=== PATIENT | female | born 1960 | race Caucasian/White ===

== ENCOUNTER 2016-10-27 04:05 | Inpatient (IN) | payer OTHER ==
[~2016-10-27] VITALS: Ht 160 cm; Wt 72.6 kg
[2016-10-27 05:28] LABS: BASOPHIL % 0.2 % (0-2); PLATELET COUNT 193 x10^3mcL (130-400); RED CELL DISTRIBUTION WIDTH 12.8 % (11.5-14.5)
[2016-10-27 05:35] LABS: CALCIUM 8.2 mg/dL (8.5-10.1); CARBON DIOXIDE 22.7 mmol/L (21-32); CHLORIDE SERUM 105 mmol/L (98-107); GFR1 > 60 mL/min; GLUCOSE SERUM 322 mg/dL (74-106); POTASSIUM SERUM 3.9 mmol/L (3.5-5.1); SODIUM SERUM 142 mmol/L (136-145)
[2016-10-27 05:40] LABS: ALBUMIN 4.1 g/dL (3.4-5.0); ALKALINE PHOSPHATASE 79 U/L (46-116); ALT/SGPT 64 U/L (14-59); AMYLASE 74 U/L (25-115); AST/SGOT 57 U/L (15-37); BILIRUBIN TOTAL 0.34 mg/dL (0.20-1.00); LIPASE 96 IU/L (73-393); TOTAL PROTEIN, SERUM 7.5 g/dL (6.4-8.2)
[2016-10-27] MEDS ORDERED: SYNTHROID0.15 MG PO (05:52)
[2016-10-27] MEDS ORDERED: ASPIR 8181 MG PO (05:52)
[2016-10-27] MEDS ORDERED: CLONIDINE HCL0.1 MG PO (05:53)
[2016-10-27] MEDS ORDERED: ZOLOFT100 MG PO (05:53)
[2016-10-27] MEDS ORDERED: WEL75 PO (05:53)
[2016-10-27] MEDS ORDERED: RESTORIL30 MG PO (05:53)
[2016-10-27] MEDS ORDERED: SEROQUEL XR400 M1 PO (05:54)
[2016-10-27] MEDS ORDERED: AMITRIPTYLINE100 MG PO (05:54)
[2016-10-27] MEDS ORDERED: NATURAL IRON65 MG PO (05:55)
[2016-10-27 07:27] LABS: T3 TOTAL 0.61 ng/mL
[2016-10-27 07:37] LABS: MAGNESIUM 1.8 mg/dL (1.8-2.4)
[2016-10-27 07:59] LABS: CHOLESTEROL/HDL RATIO 2.8
[2016-10-27 08:07] LABS: FREE T4 0.78 ng/dL (0.76-1.46); FREE THYROXINE INDEX 2.2 ug/dL (1.4-4.5)
[2016-10-27 10:32] VITALS: BP 131/66
[2016-10-27 14:11] VITALS: BP 122/75
[2016-10-27 17:48] VITALS: BP 112/73
[2016-10-27 21:30] VITALS: BP 127/75
[2016-10-28 04:45] LABS: microscopic required? NO
[2016-10-28 04:46] VITALS: BP 96/60
[2016-10-28 04:52] LABS: UA SPECIFIC GRAVITY >=1.030 (1.005-1.035); urine erythrocyte NEGATIVE (NEGATIVE)
[2016-10-28 05:07] LABS: AMPHETAMINE QUAL UR NONE DETECTED (NEG <=1000)
[2016-10-28 09:04] LABS: BASOPHIL % 0.5 % (0-2); PLATELET COUNT 168 x10^3mcL (130-400); RED CELL DISTRIBUTION WIDTH 12.6 % (11.5-14.5)
[2016-10-28 09:43] VITALS: BP 93/61
[2016-10-28 12:15] LABS: CALCIUM 7.7 mg/dL (8.5-10.1); CARBON DIOXIDE 28.7 mmol/L (21-32); CHLORIDE SERUM 109 mmol/L (98-107); CREATININE SERUM 0.8 mg/dL (0.6-1.0); GFR1 > 60 mL/min; GLUCOSE SERUM 133 mg/dL (74-106); MAGNESIUM 2.2 mg/dL (1.8-2.4); PHOSPHOROUS 1.5 mg/dL (2.5-4.9); POTASSIUM SERUM 4.3 mmol/L (3.5-5.1); SODIUM SERUM 141 mmol/L (136-145)
[2016-10-28] MEDS ORDERED: PANTOPRAZOLE SO40 M1 PO (12:19)
[2016-10-28 14:43] VITALS: BP 93/61
[2016-10-28] MEDS ORDERED: METOCLOPRAMIDE H5 M1 PO (15:21)
[2016-10-28 17:15] VITALS: BP 120/70
== END 2016-10-28 17:59 | disposition home or self-care (01) | DRG 391 ==
LOC: ED 04:05 → MU 06:23 → DU 06:23 → MU 10-28 06:16
PROVIDERS: Emergency Medicine; Internal Medicine Gastroenterology; ADMIT Family Medicine
PROC: 0DB68ZX Excision of Stomach, Via Natural or Artificial Opening Endoscopic, Diagnostic (ICD-10-PCS; principal; 2016-10-28 08:00)
PROC: 0DB48ZX Excision of Esophagogastric Junction, Via Natural or Artificial Opening Endoscopic, Diagnostic (ICD-10-PCS; 2016-10-28 08:00)
DX: K29.70 Gastritis, unspecified, without bleeding (principal); N17.0 Acute kidney failure with tubular necrosis; D68.69 Other thrombophilia; K31.9 Disease of stomach and duodenum, unspecified; E11.65 Type 2 diabetes mellitus with hyperglycemia; E11.59 Type 2 diabetes mellitus with other circulatory complications; E78.2 Mixed hyperlipidemia; K21.9 Gastro-esophageal reflux disease without esophagitis; D75.1 Secondary polycythemia; F31.9 Bipolar disorder, unspecified; I27.2 Other secondary pulmonary hypertension; E03.9 Hypothyroidism, unspecified; E83.42 Hypomagnesemia; F11.10 Opioid abuse, uncomplicated; F12.10 Cannabis abuse, uncomplicated; Z86.73 Personal history of transient ischemic attack (TIA), and cerebral infarction without residual deficits; Z98.84 Bariatric surgery status; Z68.27 Body mass index [BMI] 27.0-27.9, adult
CPT/HCPCS: 43235; 80307; 83880; 84439; C9113; J1200; J1610; J2250; J2270; J2310; J2405; J2765; J3010; J3490; J7030; Q0092

== ENCOUNTER 2016-11-02 21:33 | Emergency (ER) | payer OTHER ==
[~2016-11-02 21:33] MED LIST: AMITRIPTYLINE100 MG PO; ASPIR 8181 MG PO; CLONIDINE HCL0.1 MG PO; METOCLOPRAMIDE H5 M1 PO; NATURAL IRON65 MG PO; PANTOPRAZOLE SO40 M1 PO; RESTORIL30 MG PO; SEROQUEL XR400 M1 PO; SYNTHROID0.15 MG PO; WEL75 PO; ZOLOFT100 MG PO
[2016-11-02 22:16] LABS: PLATELET COUNT 221 x10^3mcL (130-400); RED CELL DISTRIBUTION WIDTH 12.5 % (11.5-14.5)
[2016-11-02 22:23] LABS: CALCIUM 8.8 mg/dL (8.5-10.1); CARBON DIOXIDE 30.3 mmol/L (21-32); CHLORIDE SERUM 103 mmol/L (98-107); CREATININE SERUM 1.2 mg/dL (0.6-1.0); GFR1 50 mL/min; GLUCOSE SERUM 140 mg/dL (74-106); POTASSIUM SERUM 4.1 mmol/L (3.5-5.1); SODIUM SERUM 138 mmol/L (136-145)
[2016-11-02 22:29] LABS: ALBUMIN 3.6 g/dL (3.4-5.0); ALKALINE PHOSPHATASE 89 U/L (46-116); ALT/SGPT 52 U/L (14-59); AST/SGOT 28 U/L (15-37); BILIRUBIN TOTAL 0.3 mg/dL (0.20-1.00); TOTAL PROTEIN, SERUM 6.7 g/dL (6.4-8.2)
[2016-11-02 22:54] LABS: AMPHETAMINE QUAL UR NONE DETECTED (NEG <=1000)
[2016-11-02 23:31] VITALS: BP 125/87
== END 2016-11-02 23:31 | disposition home or self-care (01) ==
LOC: ED 21:33
PROVIDERS: Emergency Medicine
DX: Z00.8 Encounter for other general examination (principal); T45.0X1A Poisoning by antiallergic and antiemetic drugs, accidental (unintentional), initial encounter; T39.1X1A Poisoning by 4-Aminophenol derivatives, accidental (unintentional), initial encounter; I10 Essential (primary) hypertension; E03.9 Hypothyroidism, unspecified; E11.9 Type 2 diabetes mellitus without complications; F32.9 Major depressive disorder, single episode, unspecified; Z86.73 Personal history of transient ischemic attack (TIA), and cerebral infarction without residual deficits; Y92.9 Unspecified place or not applicable
CPT/HCPCS: 80307; G0480; Q0092

== ENCOUNTER 2016-12-30 18:40 | Emergency (ER) | payer OTHER ==
[2016-12-30 22:30] VITALS: BP 102/71
== END 2016-12-30 23:30 | disposition home or self-care (01) ==
LOC: ED 18:40
DX: G43.909 Migraine, unspecified, not intractable, without status migrainosus (principal); F99 Mental disorder, not otherwise specified; I10 Essential (primary) hypertension; E11.9 Type 2 diabetes mellitus without complications; Z79.82 Long term (current) use of aspirin; Z79.899 Other long term (current) drug therapy; Z79.891 Long term (current) use of opiate analgesic; Z86.73 Personal history of transient ischemic attack (TIA), and cerebral infarction without residual deficits
CPT/HCPCS: J1170; Q0162

== ENCOUNTER 2017-04-20 00:09 | Emergency (ER) | payer OTHER ==
[2017-04-20 02:17] VITALS: BP 111/73
== END 2017-04-20 02:17 | disposition home or self-care (01) ==
LOC: ED 00:09
DX: G43.909 Migraine, unspecified, not intractable, without status migrainosus (principal); I10 Essential (primary) hypertension; E11.9 Type 2 diabetes mellitus without complications; E03.9 Hypothyroidism, unspecified; Z90.710 Acquired absence of both cervix and uterus; Z90.49 Acquired absence of other specified parts of digestive tract
CPT/HCPCS: J0780; J1885

== ENCOUNTER 2018-02-19 13:41 | Emergency (ER) | payer MEDICARE, OTHER ==
[~2018-02-19] VITALS: Ht 162.6 cm; Wt 77.1 kg
[2018-02-19 14:00] VITALS: Ht 162.6 cm; Wt 77.1 kg
[2018-02-19 15:00] VITALS: BP 131/65
== END 2018-02-19 15:00 | disposition home or self-care (01) ==
LOC: ED 13:41
DX: G89.29 Other chronic pain (principal); R51 Headache; R53.1 Weakness; I10 Essential (primary) hypertension; E11.9 Type 2 diabetes mellitus without complications; E03.9 Hypothyroidism, unspecified; Z90.710 Acquired absence of both cervix and uterus; Z90.49 Acquired absence of other specified parts of digestive tract
CPT/HCPCS: J2270; Q0162

== ENCOUNTER 2018-07-13 20:21 | Emergency (ER) | payer OTHER ==
[~2018-07-13] VITALS: Ht 162.6 cm; Wt 75.3 kg
[2018-07-13 20:33] VITALS: Ht 162.6 cm; Wt 75.3 kg
[2018-07-13 22:30] VITALS: BP 105/85
== END 2018-07-13 22:30 | disposition home or self-care (01) ==
LOC: ED 20:21
DX: G43.909 Migraine, unspecified, not intractable, without status migrainosus (principal); I10 Essential (primary) hypertension; E11.9 Type 2 diabetes mellitus without complications; Z86.73 Personal history of transient ischemic attack (TIA), and cerebral infarction without residual deficits; Z90.49 Acquired absence of other specified parts of digestive tract; Z98.84 Bariatric surgery status; Z98.890 Other specified postprocedural states; Z90.710 Acquired absence of both cervix and uterus
CPT/HCPCS: J2270; J2765

== ENCOUNTER 2018-09-09 11:16 | Emergency (ER) | payer OTHER ==
[~2018-09-09] VITALS: Ht 162.6 cm; Wt 72.6 kg
[2018-09-09 17:46] VITALS: BP 99/70
== END 2018-09-09 16:07 | disposition left against medical advice (07) ==
LOC: ED 11:16
DX: R51 Headache (principal); I10 Essential (primary) hypertension; E11.9 Type 2 diabetes mellitus without complications; E03.9 Hypothyroidism, unspecified; Z86.73 Personal history of transient ischemic attack (TIA), and cerebral infarction without residual deficits; Z90.710 Acquired absence of both cervix and uterus; Z90.49 Acquired absence of other specified parts of digestive tract; Z98.890 Other specified postprocedural states
CPT/HCPCS: J1885; J2765; J3010; J7030

== ENCOUNTER 2019-03-19 21:00 | Emergency (ER) | payer OTHER ==
[~2019-03-19] VITALS: Ht 162.6 cm; Wt 72.1 kg
[2019-03-19 21:04] VITALS: Ht 162.6 cm; Wt 72.1 kg
[2019-03-19 22:59] VITALS: BP 152/73
== END 2019-03-19 22:59 | disposition home or self-care (01) ==
LOC: ED 21:00
DX: R51 Headache (principal); I10 Essential (primary) hypertension; E11.9 Type 2 diabetes mellitus without complications; E03.9 Hypothyroidism, unspecified; Z98.890 Other specified postprocedural states; Z90.710 Acquired absence of both cervix and uterus; Z90.49 Acquired absence of other specified parts of digestive tract
CPT/HCPCS: J1885; J2765; J3010

== ENCOUNTER 2019-05-30 13:04 | Emergency (ER) | payer OTHER ==
[~2019-05-30] VITALS: Ht 162.6 cm; Wt 69.4 kg
[2019-05-30 13:19] VITALS: Ht 162.6 cm; Wt 69.4 kg
[2019-05-30 15:29] VITALS: BP 101/66
== END 2019-05-30 15:30 | disposition home or self-care (01) ==
LOC: ED 13:04
DX: G43.909 Migraine, unspecified, not intractable, without status migrainosus (principal); I10 Essential (primary) hypertension; E11.9 Type 2 diabetes mellitus without complications; E03.9 Hypothyroidism, unspecified; F31.9 Bipolar disorder, unspecified; Z90.49 Acquired absence of other specified parts of digestive tract; Z86.73 Personal history of transient ischemic attack (TIA), and cerebral infarction without residual deficits; Z90.710 Acquired absence of both cervix and uterus; Z98.84 Bariatric surgery status
CPT/HCPCS: J1885; J2765; J3010; J7030

== ENCOUNTER 2019-10-05 17:03 | Emergency (ER) | payer OTHER ==
[~2019-10-05] VITALS: Ht 162.6 cm; Wt 66.7 kg
[2019-10-05 17:20] VITALS: BP 116/76; Ht 162.6 cm; Wt 66.7 kg
== END 2019-10-05 18:58 | disposition home or self-care (01) ==
LOC: ED 17:03
DX: G89.29 Other chronic pain (principal); R51 Headache; E11.9 Type 2 diabetes mellitus without complications; I10 Essential (primary) hypertension; Z86.73 Personal history of transient ischemic attack (TIA), and cerebral infarction without residual deficits; Z90.710 Acquired absence of both cervix and uterus; Z90.49 Acquired absence of other specified parts of digestive tract; Z98.84 Bariatric surgery status; E03.9 Hypothyroidism, unspecified
CPT/HCPCS: J0780; J1885

== ENCOUNTER 2019-10-11 18:47 | Emergency (ER) | payer OTHER ==
[~2019-10-11] VITALS: Ht 162.6 cm; Wt 90.3 kg
[2019-10-11 19:04] VITALS: Ht 162.6 cm; Wt 90.3 kg
[2019-10-11 23:02] VITALS: BP 101/62
== END 2019-10-11 23:02 | disposition home or self-care (01) ==
LOC: ED 18:47
DX: G89.29 Other chronic pain (principal); R51 Headache; I10 Essential (primary) hypertension; E11.9 Type 2 diabetes mellitus without complications; Z86.73 Personal history of transient ischemic attack (TIA), and cerebral infarction without residual deficits; Z90.49 Acquired absence of other specified parts of digestive tract; Z90.710 Acquired absence of both cervix and uterus; Z98.84 Bariatric surgery status; E03.9 Hypothyroidism, unspecified
CPT/HCPCS: J1885; J8597

== ENCOUNTER 2019-11-19 21:41 | Emergency (ER) | payer OTHER ==
[~2019-11-19] VITALS: Ht 165.1 cm; Wt 66.7 kg
[2019-11-19 21:53] VITALS: Ht 165.1 cm; Wt 66.7 kg
[2019-11-20 00:06] VITALS: BP 105/66
== END 2019-11-20 00:06 | disposition home or self-care (01) ==
LOC: ED 21:41
DX: G43.909 Migraine, unspecified, not intractable, without status migrainosus (principal); I10 Essential (primary) hypertension; E11.9 Type 2 diabetes mellitus without complications; E03.9 Hypothyroidism, unspecified; Z90.711 Acquired absence of uterus with remaining cervical stump; Z90.49 Acquired absence of other specified parts of digestive tract
CPT/HCPCS: J1885; J2765

== ENCOUNTER 2019-11-24 21:45 | Emergency (ER) | payer OTHER, SELFPAY ==
[~2019-11-24] VITALS: Ht 162.6 cm; Wt 66.2 kg
[2019-11-24 22:08] VITALS: Ht 162.6 cm; Wt 66.2 kg
[2019-11-25 01:50] VITALS: BP 109/68
== END 2019-11-25 01:50 | disposition home or self-care (01) ==
LOC: ED 21:45
DX: R05 Cough (principal); E03.9 Hypothyroidism, unspecified; I10 Essential (primary) hypertension; E11.9 Type 2 diabetes mellitus without complications; Z20.828 Contact with and (suspected) exposure to other viral communicable diseases; Z86.73 Personal history of transient ischemic attack (TIA), and cerebral infarction without residual deficits; Z90.710 Acquired absence of both cervix and uterus; Z90.49 Acquired absence of other specified parts of digestive tract
CPT/HCPCS: Q0092; U0003-CS

== ENCOUNTER 2020-01-02 15:50 | Emergency (ER) | payer OTHER ==
[~2020-01-02] VITALS: Ht 162.6 cm; Wt 64.9 kg
[2020-01-02 16:21] VITALS: Ht 162.6 cm; Wt 64.9 kg
[2020-01-02 17:27] VITALS: BP 158/86
== END 2020-01-02 17:27 | disposition home or self-care (01) ==
LOC: ED 15:50
DX: R51 Headache (principal); I10 Essential (primary) hypertension; Z86.73 Personal history of transient ischemic attack (TIA), and cerebral infarction without residual deficits; E11.9 Type 2 diabetes mellitus without complications; Z90.710 Acquired absence of both cervix and uterus; Z90.49 Acquired absence of other specified parts of digestive tract; Z98.84 Bariatric surgery status; E03.9 Hypothyroidism, unspecified
CPT/HCPCS: J1885; J2765

== ENCOUNTER 2020-03-21 14:24 | Emergency (ER) | payer OTHER ==
[~2020-03-21] VITALS: Ht 170.2 cm; Wt 59.4 kg
[2020-03-21 14:40] VITALS: BP 122/58; Ht 170.2 cm; Wt 59.4 kg
== END 2020-03-21 16:56 | disposition home or self-care (01) ==
LOC: ED 14:24
DX: L03.031 Cellulitis of right toe (principal); I10 Essential (primary) hypertension; E11.9 Type 2 diabetes mellitus without complications

== ENCOUNTER 2020-07-15 13:26 | Emergency (ER) | payer OTHER ==
[~2020-07-15] VITALS: Ht 160 cm; Wt 63.0 kg
[2020-07-15 13:39] VITALS: Ht 160 cm; Wt 63.0 kg
[2020-07-15 14:25] LABS: BASOPHIL % 0.3 % (0.2-1.3); PLATELET COUNT 208 x10^3mcL (179-408); RED CELL DISTRIBUTION WIDTH 12.8 % (12.3-17.7)
[2020-07-15 14:43] LABS: CALCIUM 8.8 mg/dL (8.5-10.1); CARBON DIOXIDE 24.4 mmol/L (21-32); CREATININE SERUM 1.2 mg/dL (0.6-1.0); POTASSIUM SERUM 4.5 mmol/L (3.5-5.1)
[2020-07-15 14:49] LABS: ALBUMIN 3.9 g/dL (3.4-5.0); BILIRUBIN TOTAL 0.2 mg/dL (0.20-1.00); TOTAL PROTEIN, SERUM 6.9 g/dL (6.4-8.2)
[2020-07-15 14:59] LABS: rbc morphology (normal/abnorm) ABNORMAL (NORMAL)
[2020-07-15 15:26] VITALS: BP 142/83
== END 2020-07-15 15:55 | disposition home or self-care (01) ==
LOC: ED 13:26
PROVIDERS: Student in an Organized Health Care Education/Training Program
DX: R51.9 Headache, unspecified (principal); I10 Essential (primary) hypertension; E11.9 Type 2 diabetes mellitus without complications; Z90.49 Acquired absence of other specified parts of digestive tract; Z90.710 Acquired absence of both cervix and uterus
CPT/HCPCS: J1200; J1885; J2765; J7030

== ENCOUNTER 2020-07-17 10:52 | Emergency (ER) | payer OTHER ==
[~2020-07-17] VITALS: Ht 162.6 cm; Wt 61.7 kg
[2020-07-17 10:58] VITALS: Ht 162.6 cm; Wt 61.7 kg
[2020-07-17] MEDS ORDERED: NORCO1 TA2 PO ×2 (11:19→11:21)
[2020-07-17] MEDS ORDERED: NAPROXEN375 MG PO (11:19)
[2020-07-17 11:54] VITALS: BP 131/89
== END 2020-07-17 11:54 | disposition home or self-care (01) ==
LOC: ED 10:52
DX: M62.830 Muscle spasm of back (principal); I10 Essential (primary) hypertension; E11.9 Type 2 diabetes mellitus without complications; Z98.890 Other specified postprocedural states